=== PATIENT | female | born 1990 | race African-American/Black ===

== ENCOUNTER 2016-10-19 23:12 | Emergency (ER) | payer SELFPAY ==
[~2016-10-19] VITALS: Ht 162.6 cm; Wt 56.0 kg
[~2016-10-19 23:12] MED LIST: BACT800T5 PO; CEPH500C3 PO; MMW SSP; MONT10TA2 PO
[2016-10-19 23:13] VITALS: BP 107/76; PULSE 86; RESP 12; TEMP 98.6; O2SAT 99
--- NOTE | 2016-10-19 23:28 | PD ---
HPI Chief Complaint: Abdominal Pain Time Seen by Provider: 23:28 Travel History International Travel<30 days: No Contact w/Intl Traveler<30days: No Traveled to known affect area: No History of Present Illness HPI 26-year-old female came to the emergency room with history of abdominal pain and nausea for past couple days. Patient says that the nausea started a week ago. She has started having abdominal pain since yesterday. No aggravating or relieving factors identified for the pain. No radiation of the pain. She pointed to her right lower quadrant about the pain. She has not vomited and no diarrhea. Patient had a urine test done by the nurse prior to my arrival that it was negative. Patient has never had this kind of pain in the past. [facility] Past Medical History Narrative Medical List of her past medical, surgical, social and family history was reviewed from the nursing note. Asthma: Yes Immunizations Current: Yes Tetanus Vaccination: Unknown Influenza Vaccination: No ?: Not LMP: 10/13/16 : 1 Miscarriage: 1 Social History Alcohol Use: Yes (RARELY) Tobacco Use: Yes Substance Use: No Allergies-Medications (Allergen,Severity, Reaction): Coded Allergies: No Known Allergies (Unverified , 10/19/16) Comments No known drug allergies. Reported Meds & Prescriptions Reported Meds & Active Scripts Active Macrobid (Nitrofurantoin Monoh/Nitrofur Macro) 100 Mg Cap 100 Mg PO BID 7 Days Narrative Medication List of her home medications reviewed from the nursing note. Review of Systems Except as stated in HPI: all other systems reviewed are Neg Physical Exam Narrative GENERAL: Awake, alert, mild distress SKIN: Focused skin assessment warm/dry. HEAD: Atraumatic. Normocephalic. EYES: Pupils equal and round. No scleral icterus. No injection or drainage. ENT: No nasal bleeding or discharge. Mucous membranes pink and moist. NECK: Trachea midline. No JVD. CARDIOVASCULAR: Regular rate and rhythm. No murmur appreciated. RESPIRATORY: No accessory muscle use. Clear to auscultation. Breath sounds equal bilaterally. GASTROINTESTINAL: Abdomen soft, right lower quadrant tenderness, nondistended. Hepatic and splenic margins not palpable. MUSCULOSKELETAL: No obvious deformities. No clubbing. No cyanosis. No edema. NEUROLOGICAL: Awake and alert. No obvious cranial nerve deficits. Motor grossly within normal limits. Normal speech. PSYCHIATRIC: Appropriate mood and affect; insight and judgment normal. Data Data Last Documented VS Vital Signs Date Time Temp Pulse Resp B/P Pulse Ox O2 Delivery O2 Flow Rate FiO2 10/19/16 23:50 16 10/19/16 23:13 98.6 86 107/76 99 Room Air Orders Complete Blood Count With Diff (10/19/16 23:33) Comprehensive Metabolic Panel (10/19/16 23:33) Lipase (10/19/16 23:33) Urinalysis - C+S If Indicated (10/19/16 23:33) Iv Access Insert/Monitor (10/19/16 23:33) Ecg Monitoring (10/19/16 23:33) Oximetry (10/19/16 23:33) Sodium Chlor 0.9% 1000 Ml Inj (Ns 1000 M (10/19/16 23:33) Sodium Chloride 0.9% Flush (Ns Flush) (10/19/16 23:45) Ondansetron Inj (Zofran Inj) (10/19/16 23:45) Oral Contrast - Adult (10/19/16 23:37) Diatrizoate Liq ( Gastroview Liq) (10/19/16 23:52) Urine Culture (10/19/16 23:45) Ct Abd/Pel W Iv Contrast(Rout) (10/20/16 ) Nitrofurantoin Monohyd Macrocr (Macrobid (10/20/16 02:00) Iohexol 350 Inj (Omnipaque 350 Inj) (10/20/16 02:06) Labs Laboratory Tests Test 10/19/16 23:45 White Blood Count 5.8 TH/MM3 Red Blood Count 4.72 MIL/MM3 Hemoglobin 13.2 GM/DL Hematocrit 39.9 % Mean Corpuscular Volume 84.6 FL Mean Corpuscular Hemoglobin 27.9 PG Mean Corpuscular Hemoglobin 33.0 % Concent Red Cell Distribution Width 13.5 % Platelet Count 204 TH/MM3 Mean Platelet Volume 8.7 FL Neutrophils (%) (Auto) 50.0 % Lymphocytes (%) (Auto) 37.0 % Monocytes (%) (Auto) 10.6 % Eosinophils (%) (Auto) 1.7 % Basophils (%) (Auto) 0.7 % Neutrophils # (Auto) 2.9 TH/MM3 Lymphocytes # (Auto) 2.2 TH/MM3 Monocytes # (Auto) 0.6 TH/MM3 Eosinophils # (Auto) 0.1 TH/MM3 Basophils # (Auto) 0.0 TH/MM3 CBC Comment DIFF FINAL Differential Comment Urine Color YELLOW Urine Turbidity HAZY Urine pH 6.0 Urine Specific [place] 1.028 Urine Protein 100 mg/dL Urine Glucose (UA) NEG mg/dL Urine Ketones NEG mg/dL Urine Occult Blood SMALL Urine Nitrite NEG Urine Bilirubin NEG Urine Urobilinogen LESS THAN 2.0 MG/DL Urine Leukocyte Esterase NEG Urine RBC 12 /hpf Urine WBC 18 /hpf Urine Squamous Epithelial 4 /hpf Cells Urine Mucus MANY /lpf Microscopic Urinalysis Comment CULTURE INDICATED Sodium Level 142 MEQ/L Potassium Level 3.4 MEQ/L Chloride Level 106 MEQ/L Carbon Dioxide Level 28.8 MEQ/L Anion Gap 7 MEQ/L Blood Urea Nitrogen 14 MG/DL Creatinine 1.09 MG/DL Estimat Glomerular Filtration 73 ML/MIN Rate Random Glucose 83 MG/DL Calcium Level 8.7 MG/DL Total Bilirubin 0.4 MG/DL Aspartate Amino Transf 15 U/L (AST/SGOT) Alanine Aminotransferase 15 U/L (ALT/SGPT) Alkaline Phosphatase 56 U/L Total Protein 7.4 GM/DL Albumin 4.4 GM/DL Lipase 105 U/L [facility] Medical Decision Making Medical Screen Exam Complete: Yes Emergency Medical Condition: Yes Medical Record Reviewed: Yes Differential Diagnosis Acute appendicitis, UTI, acute diverticulitis, abdominal pain NOS Narrative Course 2 AM blood test results of back and within acceptable limits. UA suggestive of UTI. I have ordered IV fluid bolus and by mouth Macrobid. She was medicated for pain as well. Patient is currently going for her CT scan. Awaiting for the CT scan to be done and resulted. 2:[address] scan was read to be unremarkable. I'll discharge her home. Procedures EKG Prior to Arrival: No Diagnosis Primary Impression: Abdominal pain Qualified Code: R10.31 - Right lower quadrant abdominal pain Additional Impression: UTI (urinary tract infection) Qualified Code: N39.0 - Urinary tract infection without hematuria, site unspecified Referrals: Primary Care Physician 2 days Additional Instructions: Please return to the ER if the condition worsens or any other new concerns. Otherwise follow-up with your primary care in couple days. Take the medication as per the prescription direction. Drink plenty of fluid. Med/Other Pt SpecificInfo: Prescription(s) given Scripts Nitrofurantoin Monohydrate Macrocrystals (Macrobid)100 Mg [id number] Mg PO BID 7 Days Ref 0 Prov:Rosalinda Salas MD 10/20/16 Disposition: 01 DISCHARGE HOME Condition: Stable Rosalinda Salas MD Oct 19, 2016 23:28
[2016-10-19] MEDS ORDERED: SODIUM CHLOR 0.9% 1000 ML INJ 1,000 ML IV SCH (23:33)
[2016-10-19] MEDS ORDERED: ONDANSETRON HCL 4 MG/2 ML VIAL IV PUSH ONE (23:45)
[2016-10-19] MEDS ORDERED: SODIUM CHLORIDE 0.9% FLUSH 10 ML FLUSH IV FLUSH PRN (23:45)
[2016-10-19 23:50] VITALS: RESP 16
[2016-10-19] MEDS ORDERED: DIATRIZOATE MEGLUM/DIATRIZOATE SOD 9 ML CUP ONE (23:52)
[2016-10-19 23:57] LABS: AUTOMATED NEUTROPHIL # 2.9 TH/MM3 (1.8-7.7); BASOPHIL % 0.7 % (0.0-2.0); EOSINOPHIL # 0.1 TH/MM3 (0-0.4); EOSINOPHIL % 1.7 % (0.0-4.0); HEMATOCRIT 39.9 % (35.0-46.0); HEMO FLAGS DIFF FINAL; LYMPHOCYTE # 2.2 TH/MM3 (1.0-4.8); MEAN CELL VOLUME 84.6 FL (80.0-100.0); MEAN CORPUSCULAR HEMOGLOBIN 27.9 PG (27.0-34.0); MONO % 10.6 % (0.0-8.0); PLATELET COUNT 204 TH/MM3 (150-450); RED BLOOD COUNT 4.72 MIL/MM3 (4.00-5.30); RED CELL DISTRIBUTION WIDTH 13.5 % (11.6-17.2); WHITE BLOOD COUNT 5.8 TH/MM3 (4.0-11.0)
[2016-10-20 00:02] LABS: BLOOD, URINE SMALL (NEG); COMMENT (UR) CULTURE INDICATED; CULTURE IF INDICATED CULTURE INDICATED; GLUCOSE,URINE NEG (NEG); KETONE, URINE NEG (NEG); MUCUS URINE MANY /lpf (OCC); NITRITE,URINE NEG (NEG); SQUAMOUS EPITHELIAL CELL URINE 4 /hpf (0-5); URINE COLOR YELLOW (YELLW/STRAW)
[2016-10-20 00:25] LABS: ANION GAP 7 MEQ/L (5-15); AST (GOT) 15 U/L (15-37); BICARBONATE 28.8 MEQ/L (21.0-32.0); BLOOD UREA NITROGEN 14 MG/DL (7-18); CHLORIDE 106 MEQ/L (98-107); GLOMERULAR FILTRATION RATE 73 ML/MIN (>89); POTASSIUM 3.4 MEQ/L (3.5-5.1); SODIUM (NA) 142 MEQ/L (136-145)
[2016-10-20 00:28] LABS: ALKALINE PHOSPHATASE 56 U/L (45-117); ALT (GPT) 15 U/L (10-53); TOTAL BILIRUBIN ADULT 0.4 MG/DL (0.2-1.0)
[2016-10-20] MEDS ORDERED: NITROFURANTOIN MONOHYD MACROCR 100 MG CAP PO ONE (02:00)
[2016-10-20] MEDS ORDERED: IOHEXOL 350 MG/ML 10 ML VIAL (for RAD DIAG) IV ONE (02:06)
--- NOTE | 2016-10-20 02:17 | RADRPT ---
EXAM DATE/TIME: 10/20/2016 02:04 [facility] COMPARISON: No previous studies available for comparison. INDICATIONS : Diffuse abdominal pain with nausea. IV CONTRAST: 90 cc Omnipaque 350 (iohexol) IV ORAL CONTRAST: Prescribed oral contrast ingested. RADIATION DOSE: 5.07 CTDIvol (mGy) MEDICAL HISTORY : Asthma. SURGICAL HISTORY : None. ENCOUNTER: Initial ACUITY: 1 day PAIN SCALE: 6/10 LOCATION: Bilateral abdomen TECHNIQUE: Volumetric scanning of the abdomen and pelvis was performed. Using automated exposure control and ad justment of the mA and/or kV according to patient size, radiation dose was kept as low as reasonably achievable to obtain optimal diagnostic quality images. FINDINGS: LOWER LUNGS: The visualized lower lungs are clear. LIVER: Homogeneous density without lesion. There is no dilation of the biliary tree. No calcified gallston es. SPLEEN: Normal size without lesion. PANCREAS: Within normal limits. KIDNEYS: Normal in size and shape. There is no mass, stone or hydronephrosis. ADRENAL GLANDS: Within normal limits. VASCULAR: There is no aortic aneurysm. BOWEL/MESENTERY: The stomach, small bowel, and colon demonstrate no acute abnormality. There is no free intraperitone al air or fluid. The appendix is unremarkable. No inflammatory changes. There is stool throughout the colon. ABDOMINAL WALL: Within normal limits. RETROPERITONEUM: There is no lymphadenopathy. BLADDER: No wall thickening or mass. REPRODUCTIVE: Within normal limits. INGUINAL: There is no lymphadenopathy or hernia. MUSCULOSKELETAL: Within normal limits for patient age. CONCLUSION: Unremarkable CT abdomen and pelvis. Derrick Mauricio MD on October 20, 2016 at 2:14 Board Certified Radiologist. This report was verified electronically.
[2016-10-20] MEDS ORDERED: MACR100C2 PO (02:21)
== END 2016-10-20 02:38 | disposition home or self-care (01) ==
LOC: NEPE 23:12
DX: R10.31 Right lower quadrant pain (principal); N39.0 Urinary tract infection, site not specified; B96.89 Other specified bacterial agents as the cause of diseases classified elsewhere; Z72.0 Tobacco use
CPT/HCPCS: 74177; 80053; 81001; 83690; 85025; 87086; 96361; 96374; 99284; J2405; J7030; Q9963; Q9967